=== PATIENT | male | born 1955 | race Caucasian/White ===

== ENCOUNTER 2021-03-20 11:21 | Outpatient (CLI) | payer MEDICARE, SELFPAY | END 2021-03-20 11:22 | disposition home or self-care (01) | DX: A31.0 Pulmonary mycobacterial infection (principal) | CPT/HCPCS: 87015; 87116; 87149; 87206 ==

== ENCOUNTER 2022-01-08 08:53 | Outpatient (CLI) | payer MEDICARE, SELFPAY | END 2022-01-08 08:54 | disposition home or self-care (01) | LOC: ANHLAB 08:58 | DX: A31.0 Pulmonary mycobacterial infection (principal) | CPT/HCPCS: 87015; 87116; 87149; 87206 ==